=== PATIENT | female | born 1955 | race Caucasian/White ===

== ENCOUNTER 2021-11-24 11:05 | Inpatient (IN) ==
[2021-11-24 11:40] LABS: Basophils # 0.1 K/mcL (0.0-0.2); Eosinophils # 0.2 K/mcL (0.0-0.6); Eosinophils % 1.6 %; Hematocrit 25.2 % (35.3-44.9); Immature Granulocytes % 0.3 % (0-4); Lymphocytes # 3.7 K/mcL (0.6-4.6); Lymphocytes % 35.8 %; Mean Corpuscular HGB Conc 31.7 g/dL (31.6-35.5); Mean Corpuscular Hemoglobin 30.9 pg (28.0-33.3); Mean Corpuscular Volume 97.3 fL (83.0-100.0); Mean Platelet Volume 11.3 fL (9.4-12.4); Monocytes # 0.9 K/mcL (0.0-1.3); Monocytes % 8.5 %; Neutrophils # 5.5 K/mcL (1.6-8.9); Platelet Count 245 K/mcL (140-400); Red Blood Count 2.59 M/mcL (3.82-4.97); Red Cell Distribution Width 13.7 % (11.5-14.5); Segmented Neutrophils % 52.8 %; White Blood Count 10.4 K/mcL (4.3-11.1)
[2021-11-24] MEDS ORDERED: 0.9 % Sodium Chloride 1,000 ML IVC ONE ×2 (11:48→14:08)
[2021-11-24] MEDS ORDERED: Ondansetron 4 MG/2 ML VIAL IVP ONE ×2 (11:59→15:19)
[2021-11-24 12:07] LABS: BUN/Creatinine Ratio 29 (6-26); Blood Urea Nitrogen 25 mg/dL (8-23); Calcium 8.3 mg/dL (8.6-10.3); Carbon Dioxide 23 mEq/L (23-29); Chloride 110 mEq/L (98-107); Glucose 123 mg/dL (70-105); Osmolality,Calculated 298 (280-300); Potassium 4.1 mEq/L (3.5-5.1); Sodium 141 mEq/L (136-145); eGFR For African Americans > 60 (> 60); eGFR For Non-African Americans > 60 (> 60)
[2021-11-24] MEDS ORDERED: Iopamidol - 370 500 ML MLS IVP ONE (12:20)
[2021-11-24] MEDS ORDERED: Heparin 1,000 UNITS/500 mL 500 ML ONE ×2 (13:54→17:48)
[2021-11-24] MEDS ORDERED: 0.9 % Sodium Chloride 500 ML ONE (13:54)
[2021-11-24] MEDS ORDERED: 0.9 % Sodium Chloride 250 ML ONE (14:26)
[2021-11-24] MEDS ORDERED: 0.9 % Sodium Chloride 2,000 ML ONE ×2 (14:33→16:47)
[2021-11-24] MEDS ORDERED: Tranexamic Acid 1,000 MG/100ML 1,000 MG/100 ML PIGGYBACK IVPB ONE ×2 (14:42→14:46)
[2021-11-24] MEDS ORDERED: Ondansetron 4 MG/2 ML VIAL ONE ×2 (15:16→19:19)
[2021-11-24 15:53] LABS: Basophils # 0.1 K/mcL (0.0-0.2); Basophils % 0.8 %; Eosinophils % 0.2 %; Hematocrit 24.9 % (35.3-44.9); Hemoglobin 7.8 g/dL (11.5-15.4); Immature Granulocytes % 0.4 % (0-4); Lymphocytes # 2.3 K/mcL (0.6-4.6); Lymphocytes % 21.7 %; Mean Corpuscular HGB Conc 31.3 g/dL (31.6-35.5); Mean Corpuscular Hemoglobin 30.7 pg (28.0-33.3); Mean Platelet Volume 11.4 fL (9.4-12.4); Monocytes # 0.7 K/mcL (0.0-1.3); Monocytes % 6.5 %; Neutrophils # 7.5 K/mcL (1.6-8.9); Platelet Count 146 K/mcL (140-400); Red Blood Count 2.54 M/mcL (3.82-4.97); Red Cell Distribution Width 13.3 % (11.5-14.5); Segmented Neutrophils % 70.4 %; White Blood Count 10.6 K/mcL (4.3-11.1)
[2021-11-24 16:07] LABS: INR 1.1; Prothrombin Time 12.8 Seconds (9.4-12.1)
[2021-11-24] MEDS ORDERED: Iopamidol - 300 50 ML VIAL IVP ONE ×7 (17:35→18:31)
[2021-11-24] MEDS ORDERED: *HR* FentaNYL (PF) 100 MCG/2 ML VIAL ONE (18:02)
[2021-11-24] MEDS ORDERED: *HR* FentaNYL (PF) 100 MCG/2 ML VIAL IVP ONE (18:03)
[2021-11-24] MEDS ORDERED: Naloxone 0.4 MG/ML INJ IVP PRN (20:38)
[2021-11-24] MEDS ORDERED: Ondansetron 4 MG/2 ML VIAL IVP PRN (20:38)
[2021-11-24 21:09] LABS: Basophils # 0.1 K/mcL (0.0-0.2); Basophils % 0.3 %; Hematocrit 32.8 % (35.3-44.9); Immature Granulocytes % 0.6 % (0-4); Lymphocytes # 2.6 K/mcL (0.6-4.6); Lymphocytes % 14.4 %; Mean Corpuscular HGB Conc 33.5 g/dL (31.6-35.5); Mean Corpuscular Hemoglobin 30.5 pg (28.0-33.3); Mean Corpuscular Volume 90.9 fL (83.0-100.0); Mean Platelet Volume 11.5 fL (9.4-12.4); Monocytes # 1.6 K/mcL (0.0-1.3); Monocytes % 8.6 %; Neutrophils # 13.7 K/mcL (1.6-8.9); Platelet Count 126 K/mcL (140-400); Red Blood Count 3.61 M/mcL (3.82-4.97); Segmented Neutrophils % 76.1 %
[2021-11-24 21:16] LABS: INR 1.3; Prothrombin Time 14.1 Seconds (9.4-12.1)
[2021-11-24 21:33] LABS: Alanine Aminotransferase 14 Units/L (7-52); Albumin 2.4 g/dL (3.5-5.7); Alkaline Phosphatase 67 Units/L (34-104); Aspartate Amino Transferase 25 Units/L (13-39); BUN/Creatinine Ratio 30 (6-26); Bilirubin,Direct 0.3 mg/dL (0.0-0.2); Bilirubin,Indirect 1.1 mg/dL (0.0-1.0); Bilirubin,Total 1.4 mg/dL (0.3-1.0); Blood Urea Nitrogen 21 mg/dL (8-23); Calcium 6.8 mg/dL (8.6-10.3); Carbon Dioxide 17 mEq/L (23-29); Chloride 119 mEq/L (98-107); Globulin 2.3 g/dL (2.4-3.5); Glucose 138 mg/dL (70-105); Magnesium 1.4 mg/dL (1.6-2.6); Osmolality,Calculated 297 (280-300); Potassium 4.5 mEq/L (3.5-5.1); Sodium 141 mEq/L (136-145); Total Protein 4.7 g/dL (6.4-8.9); eGFR For African Americans > 60 (> 60); eGFR For Non-African Americans > 60 (> 60)
[2021-11-24] MEDS ORDERED: Calcium Gluconate 1gm/50mL 1 GM/50 ML BAG IVPB PRN (22:37)
[2021-11-25 04:34] LABS: VBG Ionized Calcium 1.11 mmol/L (1.15-1.35)
[2021-11-25 04:40] LABS: Basophils # 0.1 K/mcL (0.0-0.2); Basophils % 0.5 %; Eosinophils % 0.1 %; Hematocrit 31.3 % (35.3-44.9); Hemoglobin 10.4 g/dL (11.5-15.4); Immature Granulocytes % 0.6 % (0-4); Lymphocytes # 5.4 K/mcL (0.6-4.6); Lymphocytes % 23.6 %; Mean Corpuscular HGB Conc 33.2 g/dL (31.6-35.5); Mean Corpuscular Hemoglobin 30.3 pg (28.0-33.3); Mean Corpuscular Volume 91.3 fL (83.0-100.0); Mean Platelet Volume 11.6 fL (9.4-12.4); Monocytes # 2.4 K/mcL (0.0-1.3); Monocytes % 10.4 %; Neutrophils # 14.8 K/mcL (1.6-8.9); Platelet Count 138 K/mcL (140-400); Red Blood Count 3.43 M/mcL (3.82-4.97); Segmented Neutrophils % 64.8 %; White Blood Count 22.9 K/mcL (4.3-11.1)
[2021-11-25 04:56] LABS: Alanine Aminotransferase 14 Units/L (7-52); Albumin 2.5 g/dL (3.5-5.7); Alkaline Phosphatase 68 Units/L (34-104); Aspartate Amino Transferase 23 Units/L (13-39); BUN/Creatinine Ratio 30 (6-26); Bilirubin,Direct 0.3 mg/dL (0.0-0.2); Bilirubin,Total 1.3 mg/dL (0.3-1.0); Blood Urea Nitrogen 22 mg/dL (8-23); Calcium 7.5 mg/dL (8.6-10.3); Carbon Dioxide 19 mEq/L (23-29); Chloride 118 mEq/L (98-107); Globulin 2.4 g/dL (2.4-3.5); Glucose 133 mg/dL (70-105); Osmolality,Calculated 297 (280-300); Potassium 4.4 mEq/L (3.5-5.1); Sodium 141 mEq/L (136-145); Total Protein 4.9 g/dL (6.4-8.9); eGFR For African Americans > 60 (> 60); eGFR For Non-African Americans > 60 (> 60)
[2021-11-25] MEDS ORDERED: Pantoprazole 40 MG VIAL IVP SCH (09:00)
[2021-11-25 09:06] LABS: Hematocrit 30.8 % (35.3-44.9); Hemoglobin 10.3 g/dL (11.5-15.4)
[2021-11-25 09:15] LABS: INR 1.1; Prothrombin Time 12.7 Seconds (9.4-12.1)
[2021-11-25] MEDS ORDERED: ALPRAZolam 1 MG TABLET PO PRN (09:40)
[2021-11-25] MEDS ORDERED: Naloxone 0.4 MG/ML INJ IVP PRN (09:40)
[2021-11-25] MEDS ORDERED: Lactulose Oral Soln 20 GM/30 ML UDC PO PRN (09:40)
[2021-11-25] MEDS ORDERED: Ondansetron 4 MG/2 ML VIAL IVP PRN (09:40)
[2021-11-25] MEDS ORDERED: Famotidine 20 MG TABLET PO PRN (09:40)
[2021-11-25] MEDS: Furosemide 20 MG TABLET PO SCH ×2 (10:20→20:00)
[2021-11-26 04:41] LABS: Hematocrit 21.8 % (35.3-44.9); Hemoglobin 7.3 g/dL (11.5-15.4); Mean Corpuscular HGB Conc 33.5 g/dL (31.6-35.5); Mean Corpuscular Hemoglobin 30.8 pg (28.0-33.3); Mean Platelet Volume 11.8 fL (9.4-12.4); Platelet Count 147 K/mcL (140-400); Red Blood Count 2.37 M/mcL (3.82-4.97); Red Cell Distribution Width 16.2 % (11.5-14.5); White Blood Count 22.5 K/mcL (4.3-11.1)
[2021-11-26 05:08] LABS: BUN/Creatinine Ratio 25 (6-26); Blood Urea Nitrogen 19 mg/dL (8-23); Calcium 7.2 mg/dL (8.6-10.3); Carbon Dioxide 23 mEq/L (23-29); Chloride 110 mEq/L (98-107); Glucose 103 mg/dL (70-105); Osmolality,Calculated 287 (280-300); Potassium 3.6 mEq/L (3.5-5.1); Sodium 137 mEq/L (136-145); eGFR For African Americans > 60 (> 60); eGFR For Non-African Americans > 60 (> 60)
[2021-11-26 08:41] LABS: Hematocrit 22.1 % (35.3-44.9); Hemoglobin 7.4 g/dL (11.5-15.4)
[2021-11-26] MEDS: Pantoprazole 40 MG VIAL IVP SCH ×2 (08:55→17:18)
[2021-11-27 03:06] LABS: Basophils # 0.1 K/mcL (0.0-0.2); Basophils % 0.5 %; Eosinophils # 0.4 K/mcL (0.0-0.6); Eosinophils % 2.4 %; Hematocrit 19.7 % (35.3-44.9); Hemoglobin 6.4 g/dL (11.5-15.4); Immature Granulocytes % 0.4 % (0-4); Lymphocytes # 4.4 K/mcL (0.6-4.6); Lymphocytes % 26.8 %; Mean Corpuscular HGB Conc 32.5 g/dL (31.6-35.5); Mean Corpuscular Hemoglobin 30.9 pg (28.0-33.3); Mean Corpuscular Volume 95.2 fL (83.0-100.0); Mean Platelet Volume 11.7 fL (9.4-12.4); Monocytes # 2.7 K/mcL (0.0-1.3); Monocytes % 16.7 %; Neutrophils # 8.7 K/mcL (1.6-8.9); Nucleated Red Blood Cells 0.1 /100 WBC (0); Platelet Count 156 K/mcL (140-400); Red Blood Count 2.07 M/mcL (3.82-4.97); Segmented Neutrophils % 53.2 %; White Blood Count 16.3 K/mcL (4.3-11.1)
[2021-11-27 03:25] LABS: BUN/Creatinine Ratio 30 (6-26); Blood Urea Nitrogen 19 mg/dL (8-23); Calcium 7.1 mg/dL (8.6-10.3); Carbon Dioxide 25 mEq/L (23-29); Chloride 108 mEq/L (98-107); Glucose 89 mg/dL (70-105); Magnesium 1.6 mg/dL (1.6-2.6); Osmolality,Calculated 286 (280-300); Potassium 3.5 mEq/L (3.5-5.1); Sodium 137 mEq/L (136-145); eGFR For African Americans > 60 (> 60); eGFR For Non-African Americans > 60 (> 60)
[2021-11-27 04:47] LABS: Hepatitis B Surface Antigen Nonreactive (Nonreactive)
[2021-11-27 05:16] LABS: Hepatitis C Virus Antibody Nonreactive (Nonreactive)
[2021-11-27 05:17] LABS: Hepatitis A Antibody IgM Nonreactive (Nonreactive)
[2021-11-27] MEDS: Pantoprazole 40 MG VIAL IVP SCH ×2 (05:43→17:11)
[2021-11-27 06:14] LABS: Bacteria,Urine Few per hpf (None-Few); Bilirubin,Urine Negative (Negative); Blood,Urine Negative (Negative); Clarity,Urine Clear (Clear); Color,Urine Yellow (Yellow); Glucose,Urine (UA) Normal (Normal); Hyaline Casts,Urine Few per lpf (None Seen); Ketones,Urine Negative (Negative); Leukocyte Esterase,Urine Large (Negative); Mucus,Urine Few per lpf (None-Few); Nitrite,Urine Negative (Negative); Protein,Urine Trace mg/dL (Neg-Trace); RBC,Urine 0-3 per hpf (0-3); Specific Gravity,Urine 1.026 (1.010-1.025); Squamous Epithelial Cell,Urine Few per hpf (None-Few); WBC,Urine 15-30 per hpf (0-3)
[2021-11-27] MEDS ORDERED: 0.9 % Sodium Chloride 250 ML IVC SCH (08:15)
[2021-11-27] MEDS ORDERED: Perflutren Lipid Microsphere 1.3 ML in 0.9 % Sodium Chloride 8.7 ML IVP PRN (09:07)
[2021-11-27] MEDS: cefTRIAXone 1,000 MG in 0.9 % Sodium Chloride Mini Bag 100 ML IVPB SCH (09:22)
[2021-11-27 15:33] LABS: Hematocrit 24.6 % (35.3-44.9)
[2021-11-27 15:39] LABS: INR 1.1; Prothrombin Time 12.5 Seconds (9.4-12.1)
[2021-11-27 15:46] LABS: Albumin 2.5 g/dL (3.5-5.7); Bilirubin,Indirect 0.4 mg/dL (0.0-1.0); Bilirubin,Total 0.4 mg/dL (0.3-1.0); Globulin 2.6 g/dL (2.4-3.5); Total Protein 5.1 g/dL (6.4-8.9)
[2021-11-27] MEDS ORDERED: SODIUM CHLORIDE/NAHCO3/KCL/PEG 4,000 ML SOLN.RECON PO ONE (17:00)
[2021-11-28 01:46] LABS: Basophils # 0.1 K/mcL (0.0-0.2); Basophils % 0.4 %; Eosinophils # 0.4 K/mcL (0.0-0.6); Eosinophils % 2.8 %; Hemoglobin 7.2 g/dL (11.5-15.4); Immature Granulocytes % 0.3 % (0-4); Lymphocytes # 2.9 K/mcL (0.6-4.6); Lymphocytes % 21.3 %; Mean Corpuscular HGB Conc 32.7 g/dL (31.6-35.5); Mean Corpuscular Hemoglobin 30.6 pg (28.0-33.3); Mean Corpuscular Volume 93.6 fL (83.0-100.0); Monocytes # 2.2 K/mcL (0.0-1.3); Monocytes % 16.2 %; Nucleated Red Blood Cells 0.2 /100 WBC (0); Platelet Count 194 K/mcL (140-400); Red Blood Count 2.35 M/mcL (3.82-4.97); Red Cell Distribution Width 15.9 % (11.5-14.5); White Blood Count 13.6 K/mcL (4.3-11.1)
[2021-11-28 02:08] LABS: BUN/Creatinine Ratio 23 (6-26); Blood Urea Nitrogen 11 mg/dL (8-23); Calcium 7.2 mg/dL (8.6-10.3); Carbon Dioxide 24 mEq/L (23-29); Chloride 110 mEq/L (98-107); Glucose 95 mg/dL (70-105); Magnesium 1.6 mg/dL (1.6-2.6); Osmolality,Calculated 287 (280-300); Potassium 3.2 mEq/L (3.5-5.1); Sodium 139 mEq/L (136-145); eGFR For African Americans > 60 (> 60); eGFR For Non-African Americans > 60 (> 60)
[2021-11-28] MEDS: Pantoprazole 40 MG VIAL IVP SCH ×2 (06:44→17:06)
[2021-11-28] MEDS ORDERED: *HR* Propofol 200 MG/20 ML VIAL IVP ONE ×4 (09:53→10:48)
[2021-11-28] MEDS ORDERED: *HR* Succinylcholine 200 MG/10 ML VIAL IVP ONE (09:54)
[2021-11-28] MEDS ORDERED: Lidocaine -MPF 2% 2 ML VIAL ONE (09:54)
[2021-11-28] MEDS ORDERED: *HR* FentaNYL (PF) 100 MCG/2 ML VIAL ONE (10:14)
[2021-11-28] MEDS: cefTRIAXone 1,000 MG in 0.9 % Sodium Chloride Mini Bag 100 ML IVPB SCH (12:53)
[2021-11-28] MEDS ORDERED: Potassium Effervescent 25 MEQ TABLET.EFF PO ONE (13:10)
[2021-11-29] MEDS: Pantoprazole 40 MG VIAL IVP SCH ×2 (05:24→17:03)
[2021-11-29 06:14] LABS: Basophils # 0.1 K/mcL (0.0-0.2); Basophils % 0.7 %; Eosinophils # 0.7 K/mcL (0.0-0.6); Eosinophils % 6.7 %; Hematocrit 22.7 % (35.3-44.9); Hemoglobin 7.3 g/dL (11.5-15.4); Immature Granulocytes % 0.3 % (0-4); Lymphocytes # 2.3 K/mcL (0.6-4.6); Lymphocytes % 21.9 %; Mean Corpuscular HGB Conc 32.2 g/dL (31.6-35.5); Mean Corpuscular Hemoglobin 31.1 pg (28.0-33.3); Mean Corpuscular Volume 96.6 fL (83.0-100.0); Mean Platelet Volume 11.5 fL (9.4-12.4); Monocytes # 1.9 K/mcL (0.0-1.3); Monocytes % 18.3 %; Neutrophils # 5.4 K/mcL (1.6-8.9); Nucleated Red Blood Cells 0.3 /100 WBC (0); Platelet Count 245 K/mcL (140-400); Red Blood Count 2.35 M/mcL (3.82-4.97); Red Cell Distribution Width 16.7 % (11.5-14.5); Segmented Neutrophils % 52.1 %; White Blood Count 10.4 K/mcL (4.3-11.1)
[2021-11-29 06:31] LABS: BUN/Creatinine Ratio 11 (6-26); Blood Urea Nitrogen 7 mg/dL (8-23); Calcium 7.6 mg/dL (8.6-10.3); Carbon Dioxide 26 mEq/L (23-29); Chloride 108 mEq/L (98-107); Glucose 102 mg/dL (70-105); Magnesium 1.7 mg/dL (1.6-2.6); Osmolality,Calculated 284 (280-300); Potassium 3.9 mEq/L (3.5-5.1); Sodium 138 mEq/L (136-145); eGFR For African Americans > 60 (> 60); eGFR For Non-African Americans > 60 (> 60)
[2021-11-29 07:00] LABS: Platelet Estimate Normal (Normal); Polychromasia 1+ (Not Present)
[2021-11-29] MEDS: cefTRIAXone 1,000 MG in 0.9 % Sodium Chloride Mini Bag 100 ML IVPB SCH (08:33)
[2021-11-29] MEDS: polyethylene glycoL 3350 17 GM POWD.PACK PO SCH (08:34)
[2021-11-30 01:47] LABS: BUN/Creatinine Ratio 10 (6-26); Blood Urea Nitrogen 6 mg/dL (8-23); Calcium 7.9 mg/dL (8.6-10.3); Carbon Dioxide 26 mEq/L (23-29); Chloride 106 mEq/L (98-107); Glucose 87 mg/dL (70-105); Magnesium 1.8 mg/dL (1.6-2.6); Osmolality,Calculated 285 (280-300); Potassium 4.3 mEq/L (3.5-5.1); Sodium 139 mEq/L (136-145); eGFR For African Americans > 60 (> 60); eGFR For Non-African Americans > 60 (> 60)
[2021-11-30 03:37] LABS: Basophils # 0.1 K/mcL (0.0-0.2); Basophils % 0.6 %; Eosinophils # 0.9 K/mcL (0.0-0.6); Eosinophils % 7.8 %; Hematocrit 24.2 % (35.3-44.9); Hemoglobin 7.8 g/dL (11.5-15.4); Immature Granulocytes % 0.5 % (0-4); Lymphocytes # 2.5 K/mcL (0.6-4.6); Lymphocytes % 22.2 %; Mean Corpuscular HGB Conc 32.2 g/dL (31.6-35.5); Mean Corpuscular Hemoglobin 31.2 pg (28.0-33.3); Mean Corpuscular Volume 96.8 fL (83.0-100.0); Mean Platelet Volume 12.4 fL (9.4-12.4); Monocytes # 2.1 K/mcL (0.0-1.3); Monocytes % 18.4 %; Neutrophils # 5.7 K/mcL (1.6-8.9); Nucleated Red Blood Cells 0.2 /100 WBC (0); Platelet Count 239 K/mcL (140-400); Red Cell Distribution Width 16.1 % (11.5-14.5); Segmented Neutrophils % 50.5 %; White Blood Count 11.2 K/mcL (4.3-11.1)
[2021-11-30 03:51] VITALS: PULSE 79
[2021-11-30 03:55] LABS: Platelet Estimate Normal (Normal)
[2021-11-30] MEDS: Pantoprazole 40 MG VIAL IVP SCH (06:02)
[2021-11-30] MEDS ORDERED: Cyanocobalamin (B-12) 1,000 MCG/ML VIAL SQ ONE (07:54)
[2021-11-30] MEDS ORDERED: Iron Sucrose Complex 200 MG in 0.9 % Sodium Chloride 100 ML IVPB ONE (07:54)
[2021-11-30 08:10] VITALS: BP 128/79; TEMP 98.1; O2SAT 95
[2021-11-30] MEDS: cefTRIAXone 1,000 MG in 0.9 % Sodium Chloride Mini Bag 100 ML IVPB SCH (08:28)
[2021-11-30] MEDS: polyethylene glycoL 3350 17 GM POWD.PACK PO SCH (08:29)
== END 2021-11-30 10:26 | disposition home or self-care (01) | DRG 356 ==
LOC: 2NENU 11:05 → EMEROOARM 11:05 → ICNU 11:05 → SUATTDRO 20:38 → 3ANU 11-25 11:01
PROVIDERS: ADMIT Internal Medicine; ATTEND Pharmacist